=== PATIENT | male | born 1965 | race Caucasian/White ===

== ENCOUNTER 2017-05-28 14:27 | Emergency (ER) | payer BC ==
[2017-05-28] MEDS ORDERED: Lisinopril 10 MG Tab PO ONE (15:14)
[2017-05-28 15:18] VITALS: BP 197/97
--- NOTE | 2017-05-28 15:20 | EDM.PDOC ---
ED HPI GENERAL MEDICAL PROBLEM - General Chief Complaint: General Stated Complaint: [id number] HIGH BLOOD PRESSURE Time Seen by Provider: 05/28/17 15:10 Source of Information: Reports: Patient, RN, RN Notes Reviewed History Limitations: Reports: No Limitations - History of Present Illness INITIAL COMMENTS - FREE TEXT/NARRATIVE: Patient presents to the ER with c/o high blood pressure. He states he threw his back out and was being seen by the chiropractor. While at his chiro appt. his BP was elevated 200's/118. The patient was highly encouraged to be seen in the ER for his high blood pressure. The patient presents with no c/o except the pain in his back, which is better since being seen by chiro. Patient denies sob , chest pain, fever, chills, N/V/D, headaches. Patient does admit to some numbness and tingling in the hands, which is not new for him. He attributes the numbness and tingling to the disc problem in his back. - Related Data Allergies Allergy/AdvReac Type Severity Reaction Status Date / Time No Known Allergies Allergy Verified 05/28/17 14:43 Home Meds: Home Meds . [No Known Home Meds] 05/28/17 [History] Past Medical History HEENT History: Reports: Impaired Vision Social & Family History - Family History Family Medical History: Noncontributory - Tobacco Use Smoking Status *Q: Current Every Day Smoker Years of Tobacco use: 36 Packs/Tins Daily: 1 - Caffeine Use Caffeine Use: Reports: Soda - Recreational Drug Use Recreational Drug Use: No ED ROS GENERAL - Review of Systems Review Of Systems: ROS reveals no pertinent complaints other than HPI. ED EXAM, GENERAL - Physical Exam Exam: See Below Exam Limited By: No Limitations General Appearance: Alert, WD/WN, No Apparent Distress Eye Exam: Bilateral Eye: Normal Inspection, PERRL Ears: Normal External Exam, Normal Canal, Hearing Grossly Normal, Normal TMs Nose: Normal Inspection, Normal Mucosa, No Blood Throat/Mouth: Normal Inspection, Normal Lips, Normal Teeth, Normal Gums, Normal Oropharynx, Normal Voice, No Airway Compromise Head: Atraumatic, Normocephalic Neck: Normal Inspection, Supple, Non-Tender, Full Range of Motion Respiratory/Chest: No Respiratory Distress, No Accessory Muscle Use, Chest Non- Tender, Crackles (bases bilaterally) Cardiovascular: Normal Peripheral Pulses, Regular Rate, Rhythm, No Edema, No Gallop, No JVD, No Murmur, No Rub Peripheral Pulses: 2+: Radial (L), Radial (R) GI/Abdominal: Normal Bowel Sounds, Soft, Non-Tender, No Organomegaly, No Distention, No Abnormal Bruit, No Mass (Male) Exam: Deferred Rectal (Males) Exam: Deferred Back Exam: Normal Inspection, Decreased Range of Motion (seen at chiro today for back problems) Extremities: Normal Inspection, Normal Range of Motion, Non-Tender, No Pedal Edema, Normal Capillary Refill Neurological: Alert, Oriented, Normal Cognition, Normal Gait, No Motor/Sensory Deficits Psychiatric: Normal Affect, Normal Mood Skin Exam: Warm, Dry, Intact, Normal Color, No Rash Lymphatic: No Adenopathy EKG INTERPRETATION EKG Date: 05/28/17 Course - Vital Signs Last Recorded V/S: Last Vital Signs Temp 97.8 F 05/28/17 14:44 Pulse 88 05/28/17 14:44 Resp 18 05/28/17 14:44 BP 197/97 H 05/28/17 15:18 Pulse Ox 98 05/28/17 14:44 - Orders/Labs/Meds Orders: Active Orders 24 hr Category Date Time Status EKG Documentation Completion [RC] STAT Care 05/28/17 15:13 Active Labs: Laboratory Tests 05/28/17 05/28/17 Range/Units 15:30 15:30 WBC 9.7 (5.0-10.0) 10^3/uL RBC 4.92 (4.6-6.2) 10^6/uL Hgb 16.3 (14.0-18.0) g/dL Hct 46.5 (40.0-54.0) % MCV 94.5 (80-100) fL MCH 33.1 (27.0-34.0) pg MCHC 35.1 H (33.0-35.0) g/dL Plt Count 189 (150-450) 10^3/uL Neut % (Auto) 59.7 (42.2-75.2) % Lymph % (Auto) 28.2 (20.5-50.1) % Burke % (Auto) 9.0 H (2-8) % Eos % (Auto) 2.6 (1.0-3.0) % Baso % (Auto) 0.5 (0.0-1.0) % Sodium 137 (135-145) mmol/L Potassium 3.5 L (3.6-5.0) mmol/L Chloride 103 (101-111) mmol/L Carbon Dioxide 24.0 (21.0-31.0) mmol/L Anion Gap 13.5 BUN 15 (7-18) mg/dL Creatinine 1.0 (0.6-1.3) mg/dL Est Cr Clr Drug Dosing 97.00 mL/min Estimated GFR (MDRD) > 60 BUN/Creatinine Ratio 15.00 Glucose 103 (74-105) mg/dL Calcium 9.2 (8.4-10.2) mg/dl Total Bilirubin 0.4 (0.2-1.0) mg/dL AST 18 (10-42) IU/L ALT 20 (10-60) IU/L Alkaline Phosphatase 80 (42-121) IU/L Total Protein 7.7 (6.7-8.2) g/dl Albumin 4.0 (3.2-5.5) g/dl Globulin 3.7 Albumin/Globulin Ratio 1.08 Meds: Medications Discontinued Medications Generic Name Dose Route Start Last Admin Trade Name Freq PRN Reason Stop Dose Admin Lisinopril 10 mg 05/28/17 15:14 05/28/17 15:18 Prinivil PO 05/28/17 15:15 10 mg ONETIME ONE Administration - Radiology Interpretation Free Text/Narrative:: chest xray: See rad report Departure - Departure Time of Disposition: 16:08 Disposition: Home, Self-Care 01 Condition: Good Clinical Impression: Hypertension Qualifiers: Hypertension type: unspecified Qualified Code(s): I10 - Essential (primary) hypertension - Discharge Information Instructions: Hypertension, [id number] Forms: ED Department Discharge Additional Instructions: Establish a primary care provider. Make an appointment for next week to be seen to follow up regarding hypertension. Monitor blood pressure daily and keep a log. Lisinopril 10mg orally daily. You have been given a 10 day supply, so it is important that you be seen in the clinic for a further prescription and maintenance of your blood pressure. - My Orders Last 24 Hours: My Active Orders 05/28/17 15:13 EKG Documentation Completion [RC] STAT - Assessment/Plan Last 24 Hours: My Active Orders 05/28/17 15:13 EKG Documentation Completion [RC] STAT
--- NOTE | 2017-05-28 15:53 | CR ---
Clinical history: 51-year-old male with abnormally elevated blood pressure. Interpretation: Negative exam. Normal cardiac silhouette without cephalization of vascular flow, signs of alveolar edema or dependen t effusion. Slight shaggy accentuation central lung markings but no peribronchial "cuffing" or air trapping. No lung mass, hilar lymphadenopathy or focal lobar pneumonia. No atelectasis/collapse. No pneumothorax.
[2017-05-28 15:58] LABS: CHLORIDE,CL 103 mmol/L (101-111); SODIUM,NA 137 mmol/L (135-145)
--- NOTE | 2017-05-30 16:42 | EKG ---
05/28/2017 - NIHARIKA KILPATRICK - This 12-lead EKG shows normal sinus rhythm with heart rate of 80, GA interval of 148. No significant ST elevation or ST depression noted on this 12-lead EKG. Possible left ventricular hypertrophy as per 12-lead EKG. Nonspecific ST-T wave changes noted on lead V2 and V3 and V4. [facility] /[id number]
== END 2017-05-28 16:24 | disposition home or self-care (01) ==
LOC: DL.ED 14:27
DX: I10 Essential (primary) hypertension (principal); F17.210 Nicotine dependence, cigarettes, uncomplicated
CPT/HCPCS: 36415; 71020; 80053; 85025; 93005; 99284; A9270